=== PATIENT | female | born 1935 | race Caucasian/White ===

== ENCOUNTER 2017-07-31 18:10 | Emergency (ER) | payer MEDICARE, BC ==
[2017-07-31] MEDS ORDERED: Acetaminophen/oxyCODONE 325-5 MG Tab PO ONE ×2 (18:31→19:08)
--- NOTE | 2017-07-31 18:36 | EDM.PDOC ---
ED HPI GENERAL MEDICAL PROBLEM - General Chief Complaint: General Stated Complaint: PAIN UPPER LEGS Time Seen by Provider: 07/31/17 18:31 Source of Information: Reports: Patient History Limitations: Reports: No Limitations - History of Present Illness INITIAL COMMENTS - FREE TEXT/NARRATIVE: PT STATES SHE IS HAVING BILAT HIP PAIN AND LOW BACK PAIN. 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 SEEN BY PENELOPE HENRY 2 DAYS AGO AND UNDERWENT BILAT SACROILIAC STEROID INJECTIONS. STATES IT DID NOT SEEM TO HELP. NOT CURRENTLY TAKING ANY NARCOTICS. ALSO ADMITS TO URINARY URGENCY BUT NO DYSURIA. DENIES ABD PAIN, CP, SOB, OR RECENT TRAUMA Onset: Gradual Duration: Chronic Location: Reports: Back Quality: Reports: Ache Severity: Moderate Improves with: Reports: Other (STANDING) Worsens with: Reports: Movement (SITTING, LAYING FLAT) - Related Data Allergies Allergy/AdvReac Type Severity Reaction Status Date / Time ciprofloxacin [From Cipro] Allergy Unknown Anaphylactic Verified 07/31/17 18:21 Shock ciprofloxacin HCl Allergy Unknown Anaphylactic Verified 07/31/17 18:21 [From Cipro] Shock alendronate sodium Allergy Muscle Verified 07/31/17 18:21 [From Fosamax] Aches amoxicillin [From Augmentin] Allergy Stomach Verified 07/31/17 18:21 Upset clavulanic acid Allergy Stomach Verified 07/31/17 18:21 [From Augmentin] Upset lisinopril Allergy Nausea Verified 07/31/17 18:21 Home Meds: Home Meds Levothyroxine Sodium [Synthroid] 75 mcg PO DAILY 10/28/13 [History] metFORMIN [Glucophage] 1,000 mg PO BIDM 10/28/13 [History] Aspirin 325 mg PO QPM 02/27/17 [History] Calcium Carbonate [Calcium] 500 mg PO DAILY 02/27/17 [History] Cholecalciferol (Vitamin D3) [Vitamin D3] 1,000 unit PO DAILY 02/27/17 [History] Diltiazem HCl [Cardizem] 120 mg PO DAILY 02/27/17 [History] Past Medical History HEENT History: Reports: Impaired Vision Other HEENT History: wears glasses Cardiovascular History: Reports: Afib, Arrhythmia, Hypertension Other Gastrointestinal History: hx. of bloody stools Musculoskeletal History: Reports: Arthritis Neurological History: Reports: None Psychiatric History: Reports: None Endocrine/Metabolic History: Reports: Obesity/BMI 30+, Vitamin D Deficiency Dermatologic History: Reports: None - Past Surgical History Female Surgical History: Reports: Hysterectomy Social & Family History - Tobacco Use Smoking Status *Q: Never Smoker Second Hand Smoke Exposure: No - Caffeine Use Caffeine Use: Reports: Coffee - Recreational Drug Use Recreational Drug Use: No - Living Situation & Occupation Living situation: Reports: Occupation: Retired ED ROS GENERAL - Review of Systems Review Of Systems: ROS reveals no pertinent complaints other than HPI. Constitutional: Reports: No Symptoms HEENT: Reports: No Symptoms Respiratory: Reports: No Symptoms Cardiovascular: Reports: No Symptoms Endocrine: Reports: No Symptoms GI/Abdominal: Reports: No Symptoms : Reports: Urgency Musculoskeletal: Reports: Back Pain, Other (BILAT HIP PAIN) Skin: Reports: No Symptoms Neurological: Reports: No Symptoms Psychiatric: Reports: No Symptoms Hematologic/Lymphatic: Reports: No Symptoms Immunologic: Reports: No Symptoms ED EXAM, GENERAL - Physical Exam Exam: See Below Exam Limited By: No Limitations General Appearance: Alert, WD/WN, No Apparent Distress Throat/Mouth: Normal Inspection, Normal Oropharynx, No Airway Compromise Neck: Normal Inspection, Supple, Non-Tender, Full Range of Motion Respiratory/Chest: No Respiratory Distress, Lungs Clear, Normal Breath Sounds, No Accessory Muscle Use, Chest Non-Tender Cardiovascular: Regular Rate, Rhythm, No Murmur GI/Abdominal: Normal Bowel Sounds, Soft, Non-Tender Back Exam: Paraspinal Tenderness. No: CVA Tenderness (L), CVA Tenderness (R) Extremities: Normal Inspection, No Pedal Edema Neurological: Alert, Oriented, Normal Cognition Psychiatric: Normal Affect, Normal Mood Skin Exam: Warm, Dry, Intact, Normal Color, No Rash Course - Re-Assessments/Exams Free Text/Narrative Re-Assessment/Exam: 07/31/17 19:07 PT AFEBRILE, NONTOXIC APPEARING, VSS, PAIN SOMEWHAT RELIEVED. PERCOCET GIVEN HERE AND TO GO. KEFLEX STARTED HERE AND RX TO GO. Free Text/Narrative Re-Assessment/Exam: 07/31/17 19:17 DISCUSSED CASE WITH RADIOLOGY/ONCOLOGY DR TSANG. AGREED WITH ER COURSE AND WILL SEE PT ON FRIDAY IN [place] Departure - Departure Time of Disposition: 19:11 Disposition: Home, Self-Care 01 Condition: Good Clinical Impression: UTI, Urinary tract infectious disease Back pain Qualifiers: Back pain location: low back pain Chronicity: chronic Back pain laterality: bilateral Sciatica presence: without sciatica Qualified Code(s): M54.5 - Low back pain; G89.29 - Other chronic pain - Discharge Information Instructions: Back Pain, Adult, Urinary Tract Infection, Adult, Cen[id number] Referrals: Brenda Alexander MD [Primary Care Provider] - Additional Instructions: FOLLOW UP FOR RADIOLOGY APPOINTMENT SCHEDULED ON FRIDAY. RETURN TO ER SOONER IF SYMPTOMS CONTINUE - Assessment/Plan Assessment:: UTI / CHRONIC BACK PAIN
[2017-07-31 18:37] VITALS: BP 164/91
[2017-07-31] MEDS ORDERED: Ketorolac 60 MG/2 ML SDV IM ONE (18:59)
[2017-07-31] MEDS ORDERED: Cephalexin 250 MG Cap PO ONE (19:06)
== END 2017-07-31 19:30 | disposition home or self-care (01) ==
LOC: KA.ED 18:10
DX: N39.0 Urinary tract infection, site not specified (principal); M54.5 Low back pain; G89.29 Other chronic pain; I10 Essential (primary) hypertension; Z88.1 Allergy status to other antibiotic agents; Z88.8 Allergy status to other drugs, medicaments and biological substances; Z79.84 Long term (current) use of oral hypoglycemic drugs; Z79.82 Long term (current) use of aspirin; Z79.899 Other long term (current) drug therapy; Z85.048 Personal history of other malignant neoplasm of rectum, rectosigmoid junction, and anus; Z90.710 Acquired absence of both cervix and uterus
CPT/HCPCS: 81001; 87086; 96372; 99283; A9270; J1885

== ENCOUNTER 2017-08-10 18:38 | Emergency (ER) | payer MEDICARE, BC ==
[2017-08-10 18:46] VITALS: BP 146/71
[2017-08-10] MEDS ORDERED: Lidocaine 2% with EPINEPHrine 1:200,000 20 ML SDV ONE (19:15)
--- NOTE | 2017-08-10 19:43 | EDM.PDOC ---
ED HPI GENERAL MEDICAL PROBLEM - General Chief Complaint: Gastrointestinal Problem Stated Complaint: PAIN Time Seen by Provider: 08/10/17 19:08 Source of Information: Reports: Patient History Limitations: Reports: No Limitations - History of Present Illness INITIAL COMMENTS - FREE TEXT/NARRATIVE: Patient presents with pain and burning at her rectum that started today. She feels a large bump there also. 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 She called the GI center and was directed to come to ER. She has been having frequent, loose/watery stools since the surgery. Rectal Pain Score (Numeric/FACES): 9 - Related Data Allergies Allergy/AdvReac Type Severity Reaction Status Date / Time ciprofloxacin [From Cipro] Allergy Unknown Anaphylactic Verified 08/10/17 18:40 Shock ciprofloxacin HCl Allergy Unknown Anaphylactic Verified 08/10/17 18:40 [From Cipro] Shock alendronate sodium Allergy Muscle Verified 08/10/17 18:40 [From Fosamax] Aches amoxicillin [From Augmentin] Allergy Stomach Verified 08/10/17 18:40 Upset clavulanic acid Allergy Stomach Verified 08/10/17 18:40 [From Augmentin] Upset lisinopril Allergy Nausea Verified 08/10/17 18:40 Home Meds: Home Meds Levothyroxine Sodium [Synthroid] 75 mcg PO DAILY 10/28/13 [History] metFORMIN [Glucophage] 500 mg PO BIDM 10/28/13 [History] Aspirin 325 mg PO QPM 02/27/17 [History] Calcium Carbonate [Calcium] 500 mg PO DAILY 02/27/17 [History] Cholecalciferol (Vitamin D3) [Vitamin D3] 1,000 unit PO DAILY 02/27/17 [History] Diltiazem HCl [Cardizem] 240 mg PO DAILY 02/27/17 [History] Hydrocodone/Acetaminophen [Hydrocodon-Acetaminophen 5-325] 1 - 2 tab PO Q6HR PRN 08/01/17 [History] Past Medical History HEENT History: Reports: Impaired Vision Other HEENT History: wears glasses Cardiovascular History: Reports: Afib, Arrhythmia, Hypertension Other Gastrointestinal History: hx. 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: Musculoskeletal History: Reports: Arthritis Neurological History: Reports: None Psychiatric History: Reports: Anxiety Endocrine/Metabolic History: Reports: Vitamin D Deficiency Immunologic History: Reports: Immunosuppression Oncologic (Cancer) History: Reports: Colon Dermatologic History: Reports: None - Infectious Disease History Infectious Disease History: Reports: None - Past Surgical History HEENT Surgical History: Reports: None Cardiovascular Surgical History: Reports: None GI Surgical History: Reports: Colon, Colonoscopy Other GI Surgeries/Procedures: ileostomy Female Surgical History: Reports: Hysterectomy Endocrine Surgical History: Reports: None Musculoskeletal Surgical History: Reports: None Oncologic Surgical History: Reports: Other (See Below) Other Oncologic Surgeries/Procedures: colon resection. radiation Social & Family History - Tobacco Use Smoking Status *Q: Never Smoker Second Hand Smoke Exposure: No - Caffeine Use Caffeine Use: Reports: Coffee Caffeine Use Comment: 2 cups in am - Recreational Drug Use Recreational Drug Use: No - Living Situation & Occupation Living situation: Reports: Occupation: Retired ED ROS GENERAL - Review of Systems Review Of Systems: See Below Constitutional: Denies: Fever, Chills, Weakness HEENT: Reports: No Symptoms Respiratory: Denies: Shortness of Breath, Cough Cardiovascular: Denies: Chest Pain, Lightheadedness, Syncope GI/Abdominal: Reports: Diarrhea. Denies: Abdominal Pain, Nausea, Vomiting : Denies: Dysuria Musculoskeletal: Reports: No Symptoms Skin: Denies: Cyanosis, Jaundice, Mottled, Pallor, Diaphoresis Neurological: Denies: Confusion, Dizziness, Headache Psychiatric: Denies: Agitation, Anxiety, Confusion ED EXAM, GI/ABD - Physical Exam Exam: See Below Exam Limited By: No Limitations General Appearance: Alert, WD/WN, No Apparent Distress Eyes: Bilateral: Normal Appearance, EOMI Ears: Normal External Exam, Hearing Grossly Normal Nose: Normal Inspection, No Blood Throat/Mouth: Normal Lips, Normal Voice, No Airway Compromise Head: Atraumatic, Normocephalic Neck: Full Range of Motion Respiratory/Chest: No Respiratory Distress Cardiovascular: No Edema Rectal (Female) Exam: Hemorrhoids (a large external thrombosed hemorrhoid tender to palpation without evidence of cellulitis or abscess), Tenderness. No : Fecal Impaction, Perirectal Abscess, Rectal Fissure Neurological: Alert, Oriented, Normal Cognition, No Motor/Sensory Deficits Psychiatric: Normal Affect, Normal Mood Skin Exam: Warm, Dry, Intact, Normal Color, No Rash Course - Vital Signs Last Recorded V/S: Last Vital Signs Temp 97.5 F 08/10/17 18:43 Pulse 116 H 08/10/17 18:43 Resp 22 H 08/10/17 18:43 BP 146/71 H 08/10/17 18:43 Pulse Ox 99 08/10/17 18:43 - Orders/Labs/Meds Meds: Medications Discontinued Medications Generic Name Dose Route Start Last Admin Trade Name Annika PRN Reason Stop Dose Admin Lidocaine/Epinephrine Confirm 08/10/17 19:15 Xylocaine-Mpf 2%-Epi 1:200,000 Administered 08/10/17 19:16 Dose 20 ml .ROUTE .STK-MED ONE - Re-Assessments/Exams Free Text/Narrative Re-Assessment/Exam: 08/10/17 19:50 Discussed findings and expectations. Provided pt info on hemorrhoid care. Instructed patient she can sit in a warm bath to help clean and soothe this. Recheck in 1-2 days. Patient discharged in stable condition. Departure - Departure Time of Disposition: 19:37 Disposition: Home, Self-Care 01 Condition: Good Clinical Impression: Thrombosed external hemorrhoid - Discharge Information Referrals: Brenda Alexander MD [Primary Care Provider] - Additional Instructions: 1. Watch for fever or signs of infection. 2. You can use Ibuprofen vs Tylenol as needed for treatment of pain. 3. Follow up with Dr. Gutierrez in 1-2 days for recheck to make sure it isn't looking infected and to see if anything further needs to be done with the hemorrhoid. Incision and Drainage - Incision and Drainage Site: Rectal external hemorrhoid, 1.5x3cm, thrombosed Exam: hard Local anesthesia: Lidocaine: lidocaine 1 % (with epi) Local anesthesia volume: other (3 cc) Area incised with: other (11-blade) Drainage: Bloody, Small Amount Wound culture: No Probed to Break Up Loculations: Yes Packed With: None Sterile Dressing: None Complications: No
== END 2017-08-10 19:50 | disposition home or self-care (01) ==
LOC: KA.ED 18:38
DX: K64.5 Perianal venous thrombosis (principal); I48.91 Unspecified atrial fibrillation; I10 Essential (primary) hypertension; Z90.710 Acquired absence of both cervix and uterus; Z88.1 Allergy status to other antibiotic agents; Z88.8 Allergy status to other drugs, medicaments and biological substances; Z79.82 Long term (current) use of aspirin; Z79.899 Other long term (current) drug therapy
CPT/HCPCS: 99282; 99283

== ENCOUNTER 2017-08-16 13:56 | Emergency (ER) | payer MEDICARE, BC ==
[2017-08-16 14:19] VITALS: BP 147/77
[2017-08-16] MEDS ORDERED: Lidocaine 2% with EPINEPHrine 1:200,000 20 ML SDV ONE (14:43)
--- NOTE | 2017-08-16 15:35 | EDM.PDOC ---
ED HPI GENERAL MEDICAL PROBLEM - General Chief Complaint: General Stated Complaint: hemorrhoid Time Seen by Provider: 08/16/17 14:30 Source of Information: Reports: Patient History Limitations: Reports: No Limitations - History of Present Illness INITIAL COMMENTS - FREE TEXT/NARRATIVE: 82 year-old female presents to emergency room complaining of rectal pain. Pain began this morning when she woke up. Reports the pain is severe and constant. She denies any current rectal bleeding. She denies significant abdominal pain at this time. She denies significant constipation. She has been having regular bowel movements. She was seen on 08/10/17 for similar episode of hemorrhoid pain. She had incision of her hemorrhoid and had good relief up until today. The hemorrhoid was not excised but she reports that is very tender. She denies fever, chills, nausea or vomiting, abdominal pain. She had a recent surgery reversal of her ileostomy and reanastomosis of her colon on . She was diagnosed with colon cancer in April and had resection. She knows little bit of a drainage from where her ileostomy was reversed but denies any redness or purulence and again no significant pain in the abdomen area. She seeks further treatment of her rectal and hemorrhoid pain. Onset: Today Onset Date: 08/16/17 Onset Time: 07:00 Duration: Hour(s):, Constant Quality: Reports: Ache, Throbbing Severity: Severe Improves with: Reports: None Worsens with: Reports: Other (sitting) Associated Symptoms: Reports: No Other Symptoms. Denies: Fever/Chills, Nausea/ Vomiting Rectal Pain Score (Numeric/FACES): 10 - Related Data Allergies Allergy/AdvReac Type Severity Reaction Status Date / Time ciprofloxacin [From Cipro] Allergy Unknown Anaphylactic Verified 08/16/17 14:04 Shock ciprofloxacin HCl Allergy Unknown Anaphylactic Verified 08/16/17 14:04 [From Cipro] Shock alendronate sodium Allergy Muscle Verified 08/16/17 14:04 [From Fosamax] Aches amoxicillin [From Augmentin] Allergy Stomach Verified 08/16/17 14:04 Upset clavulanic acid Allergy Stomach Verified 08/16/17 14:04 [From Augmentin] Upset lisinopril Allergy Nausea Verified 08/16/17 14:04 Home Meds: Home Meds Levothyroxine Sodium [Synthroid] 75 mcg PO DAILY 10/28/13 [History] metFORMIN [Glucophage] 500 mg PO BIDM 10/28/13 [History] Aspirin 325 mg PO QPM 02/27/17 [History] Calcium Carbonate [Calcium] 500 mg PO DAILY 02/27/17 [History] Cholecalciferol (Vitamin D3) [Vitamin D3] 1,000 unit PO DAILY 02/27/17 [History] Diltiazem HCl [Cardizem] 240 mg PO DAILY 02/27/17 [History] Hydrocodone/Acetaminophen [Hydrocodon-Acetaminophen 5-325] 1 - 2 tab PO Q6HR PRN 08/01/17 [History] Hydrocortisone [Proctosol-HC] 1 applic TOP QID PRN 08/16/17 [History] Past Medical History HEENT History: Reports: Impaired Vision Other HEENT History: wears glasses Cardiovascular History: Reports: Afib, Arrhythmia, Hypertension Other Gastrointestinal History: hx. 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: Musculoskeletal History: Reports: Arthritis Neurological History: Reports: None Psychiatric History: Reports: Anxiety Endocrine/Metabolic History: Reports: Hypothyroidism, Vitamin D Deficiency Immunologic History: Reports: Immunosuppression Oncologic (Cancer) History: Reports: Colon Dermatologic History: Reports: None - Infectious Disease History Infectious Disease History: Reports: Chicken Pox, Measles, Mumps, Other (See Below) Other Infectious Disease History: Whopping cough - Past Surgical History HEENT Surgical History: Reports: None Cardiovascular Surgical History: Reports: None GI Surgical History: Reports: Colon, Colonoscopy, Other (See Below) Other GI Surgeries/Procedures: ileostomy takedown 08/04/2017 Female Surgical History: Reports: Hysterectomy Endocrine Surgical History: Reports: None Musculoskeletal Surgical History: Reports: None Oncologic Surgical History: Reports: Other (See Below) Other Oncologic Surgeries/Procedures: colon resection. radiation Social & Family History - Family History Family Medical History: Noncontributory - Tobacco Use Smoking Status *Q: Never Smoker Second Hand Smoke Exposure: No - Caffeine Use Caffeine Use: Reports: Coffee Caffeine Use Comment: 2 cups in am - Recreational Drug Use Recreational Drug Use: No - Living Situation & Occupation Living situation: Reports: Occupation: Retired ED ROS GENERAL - Review of Systems Review Of Systems: ROS reveals no pertinent complaints other than HPI. ED EXAM, GENERAL - Physical Exam Exam: See Below Exam Limited By: No Limitations General Appearance: Alert, WD/WN, No Apparent Distress Throat/Mouth: Normal Voice Head: Atraumatic, Normocephalic Respiratory/Chest: No Respiratory Distress Rectal (Female) Exam: Hemorrhoids (a large external hemorrhoid is noticed on the right side of the rectum is percolation and tender to palpation. No evidence of rectal bleeding or vaginal bleeding is identified.) Back Exam: Normal Inspection Extremities: Normal Inspection Neurological: Alert, Oriented Psychiatric: Normal Affect, Normal Mood Skin Exam: Warm, Dry, Intact, Normal Color, No Rash ED I&D PROCEDURES - I&D Site: gross history, hemorrhoid Skin prep: Providone-Iodine (Betadine) Local anesthesia - Lidocaine (Xylocaine): 2% with EPI Local Anesthetic Volume: Other (20cc) Area Incised With: 15 Blade Drainage: Bloody Probed to Break Up Loculations: Yes Packed With: Other (Surgicel) Sterile Dressinx4(s) Complications: No Progress/Comments: Rectum and area surrounding the hemorrhoid was cleaned and prepped with a white and then prepped with Betadine. 27-gauge needle was used to infiltrate the surrounding skin underneath the clot with 2% lidocaine with epinephrine. After adequate anesthetic was administered. On Nursoy helped gently spread the buttocks and the area was cleaned and sterile drapes were placed over the rectal area where the hemorrhoid external thrombosed hemorrhoid was visualized. A 15 blade was used making an elliptical excision to excise the thrombosed hemorrhoid and skin. Hemorrhoid was removed with pickups and a 15 blade. 4 x 4 gauze was packed use for bleeding. Silver nitrate sticks were used for hemostasis. A small piece of Surgicel and 4 x 4's was packed into the excised hemorrhoidal tissue. And paper tape was used to secure the dressing. Patient was placed in some depends undergarments in case of bleeding. We'll have her begin sitz baths and remove the dressing in 6 hours. Course - Vital Signs Last Recorded V/S: Last Vital Signs Temp 99 F 08/16/17 14:15 Pulse 86 08/16/17 14:15 Resp 20 08/16/17 14:15 BP 147/77 H 08/16/17 14:15 Pulse Ox 98 08/16/17 14:15 - Orders/Labs/Meds Meds: Medications Discontinued Medications Generic Name Dose Route Start Last Admin Trade Name Annika PRN Reason Stop Dose Admin Lidocaine/Epinephrine Confirm 08/16/17 14:43 08/16/17 15:48 Xylocaine-Mpf 2%-Epi 1:200,000 Administered 08/16/17 14:44 20 ml Dose Administration 20 ml .ROUTE .STK-MED ONE - Re-Assessments/Exams Free Text/Narrative Re-Assessment/Exam: 08/16/17 16:00 Patient reports adequate anesthetic she has no pain in the area her rectal or thrombosed hemorrhoid after delivery of anesthetic to infiltrate the skin and surrounding area with 2% lidocaine with epinephrine. Departure - Departure Time of Disposition: 16:30 Disposition: Home, Self-Care 01 Condition: Good Clinical Impression: Thrombosed external hemorrhoid - Discharge Information Referrals: Brenda Alexander MD [Primary Care Provider] - Forms: ED Department Discharge Additional Instructions: 1. Remove the dressing at time of first sitz bath in about 6 hours 2. Ibuprofen 800 mg 3 times a day with food for analgesic 3. Lidocaine 4% ointment to the anus: Topical anesthetic for pain relief. 4. Oxycodone patient has prescription for recent surgery at home may take if pain is severe as directed. 5. Colace to take one twice a day for constipation and soft stools. 6. Follow-up with Dr. Brenda Ludwig on Friday for a wound check. - Assessment/Plan Assessment:: Thrombosed external hemorrhoid. Plan: 1. Remove the dressing at time of first sitz bath in about 6 hours 2. Ibuprofen 800 mg 3 times a day with food for analgesic 3. Lidocaine 4% ointment to the anus: Topical anesthetic for pain relief. 4. Oxycodone patient has prescription for recent surgery at home may take if pain is severe as directed. 5. Colace to take one twice a day for constipation and soft stools. 6. Follow-up with Dr. Brenda Ludwig on Friday for a wound check.
[2017-08-16] MEDS ORDERED: Ibuprofen 400 MG Tab ONE (15:50)
[2017-08-16] MEDS ORDERED: Lidocaine 4% Top Soln 50 ML Bottle ONE (16:06)
[2017-08-16] MEDS ORDERED: Lidocaine 2% with EPINEPHrine 1:200,000 20 ML SDV INJECT ONE (16:06)
[2017-08-16] MEDS ORDERED: Lidocaine 4% Top Soln 50 ML Bottle TOP ONE (17:00)
== END 2017-08-16 16:20 | disposition home or self-care (01) ==
LOC: KA.ED 13:56
DX: K64.5 Perianal venous thrombosis (principal); I10 Essential (primary) hypertension; Z88.1 Allergy status to other antibiotic agents; Z88.8 Allergy status to other drugs, medicaments and biological substances; Z79.84 Long term (current) use of oral hypoglycemic drugs; Z79.82 Long term (current) use of aspirin; Z79.899 Other long term (current) drug therapy
CPT/HCPCS: 46083; 99282; 99283; A9270

== ENCOUNTER 2018-03-06 22:53 | Emergency (ER) | payer MEDICARE, BC ==
[2018-03-06] MEDS ORDERED: Sodium Chloride 0.9% 5 ML Syringe FLUSH PRN (23:03)
[2018-03-06] MEDS ORDERED: Metoprolol Tartrate 5 MG/5 ML SDV ONE (23:08)
[2018-03-06] MEDS ORDERED: Aspirin 81 MG Tab.Chew ONE (23:09)
[2018-03-06] MEDS ORDERED: Nitroglycerin 2% Oint 1 GM UD Packet ONE (23:19)
[2018-03-06] MEDS ORDERED: Nitroglycerin 2% Oint 1 GM UD Packet TOP ONE (23:22)
[2018-03-06] MEDS: Diltiazem 25 MG/5 ML SDV IVPUSH ONE ×3 (23:24→23:40)
[2018-03-06] MEDS: Sodium Chloride 0.9% 1,000 ML ONE ×2 (23:34→23:36)
--- NOTE | 2018-03-06 23:42 | EDM.PDOC ---
ED HPI GENERAL MEDICAL PROBLEM - General Chief Complaint: Chest Pain Stated Complaint: ILL Time Seen by Provider: 03/06/18 23:20 Source of Information: Reports: Patient History Limitations: Reports: No Limitations - History of Present Illness INITIAL COMMENTS - FREE TEXT/NARRATIVE: Patient is an 82-year-old female who presents to the emergency department this evening with a complaint of heart palpitations. Patient states approximately 2000 this evening she felt her heart racing and laid down. She thought that it was improving, but about 9 o'clock it became worse. At that time she took 180 mg of Cardizem which is what she takes on a regular daily basis. She states that did not have any effect and so she decided to present to the emergency department. Patient states that she does feel short of breath but denies chest pain, abdominal pain, headache, dizziness, nausea, vomiting, diarrhea, or out of country travel. Patient was given 5 mg metoprolol IV. An EKG was faxed up to [facility]. Case discussed with engineering faculty, Dr. Howard who recommended to start patient on 20 mg Cardizem IV until labs with troponins come back. 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 Medication(s) (180 mg of Cardizem at 2100 this evening) - Related Data Allergies Allergy/AdvReac Type Severity Reaction Status Date / Time ciprofloxacin [From Cipro] Allergy Unknown Anaphylactic Verified 08/16/17 14:04 Shock ciprofloxacin HCl Allergy Unknown Anaphylactic Verified 08/16/17 14:04 [From Cipro] Shock alendronate sodium Allergy Muscle Verified 08/16/17 14:04 [From Fosamax] Aches amoxicillin [From Augmentin] Allergy Stomach Verified 08/16/17 14:04 Upset clavulanic acid Allergy Stomach Verified 08/16/17 14:04 [From Augmentin] Upset lisinopril Allergy Nausea Verified 08/16/17 14:04 pregabalin [From Lyrica] Allergy Other Verified 03/06/18 23:06 Home Meds: Home Meds Levothyroxine Sodium [Synthroid] 75 mcg PO DAILY 10/28/13 [History] metFORMIN [Glucophage] 500 mg PO BIDM 10/28/13 [History] Aspirin 325 mg PO QPM 02/27/17 [History] Diltiazem HCl [Cardizem] 240 mg PO DAILY 02/27/17 [History] oxyCODONE HCl/Acetaminophen [Endocet 5-325 Tablet] 1 - 2 tab PO Q6HR PRN [History] Past Medical History HEENT History: Reports: Impaired Vision Other HEENT History: wears glasses Cardiovascular History: Reports: Afib, Arrhythmia, Hypertension Other Gastrointestinal History: hx. 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: Musculoskeletal History: Reports: Arthritis Neurological History: Reports: None Psychiatric History: Reports: Anxiety Endocrine/Metabolic History: Reports: Hypothyroidism, Vitamin D Deficiency Immunologic History: Reports: Immunosuppression Oncologic (Cancer) History: Reports: Colon Dermatologic History: Reports: None - Infectious Disease History Infectious Disease History: Reports: Chicken Pox, Measles, Mumps, Other (See Below) Other Infectious Disease History: Whopping cough - Past Surgical History HEENT Surgical History: Reports: None Cardiovascular Surgical History: Reports: None GI Surgical History: Reports: Colon, Colonoscopy, Other (See Below) Other GI Surgeries/Procedures: ileostomy takedown 08/04/2017 Female Surgical History: Reports: Hysterectomy Endocrine Surgical History: Reports: None Musculoskeletal Surgical History: Reports: None Oncologic Surgical History: Reports: Other (See Below) Other Oncologic Surgeries/Procedures: colon resection. radiation Social & Family History - Family History Family Medical History: Noncontributory - Tobacco Use Smoking Status *Q: Unknown Ever Smoked Second Hand Smoke Exposure: No - Caffeine Use Caffeine Use: Reports: Coffee Caffeine Use Comment: 2 cups in am - Recreational Drug Use Recreational Drug Use: No - Living Situation & Occupation Living situation: Reports: Occupation: Retired ED ROS GENERAL - Review of Systems Review Of Systems: ROS reveals no pertinent complaints other than HPI. Constitutional: Reports: No Symptoms HEENT: Reports: No Symptoms Respiratory: Reports: No Symptoms Cardiovascular: Reports: Palpitations Endocrine: Reports: No Symptoms GI/Abdominal: Reports: No Symptoms : Reports: No Symptoms Musculoskeletal: Reports: No Symptoms Skin: Reports: No Symptoms Neurological: Reports: No Symptoms Psychiatric: Reports: No Symptoms Hematologic/Lymphatic: Reports: No Symptoms Immunologic: Reports: No Symptoms ED EXAM, GENERAL - Physical Exam Exam: See Below Exam Limited By: No Limitations General Appearance: Alert, WD/WN, Mild Distress Eye Exam: Bilateral Eye: Normal Inspection Nose: Normal Inspection, No Blood Throat/Mouth: Normal Inspection, Normal Oropharynx, No Airway Compromise Head: Atraumatic, Normocephalic Neck: Normal Inspection Respiratory/Chest: No Respiratory Distress, Lungs Clear, Normal Breath Sounds, No Accessory Muscle Use, Chest Non-Tender Cardiovascular: Tachycardia, Irregularly Irregular GI/Abdominal: Normal Bowel Sounds, Soft, Non-Tender Back Exam: Normal Inspection. No: CVA Tenderness (L), CVA Tenderness (R) Extremities: Normal Inspection, No Pedal Edema Neurological: Alert, Oriented, Normal Cognition Psychiatric: Normal Affect, Normal Mood Skin Exam: Warm, Dry, Intact, Normal Color, No Rash EKG INTERPRETATION EKG Date: 03/06/18 Time: 23:05 Rhythm: A-Fib Rate (Beats/Min): 195 Comparison: NA - No Prior EKG Course - Vital Signs Last Recorded V/S: Last Vital Signs Temp 96.9 F 03/06/18 23:14 Pulse 180 H 03/06/18 23:14 Resp 30 H 03/06/18 23:14 BP 153/83 H 03/06/18 23:14 Pulse Ox 95 03/06/18 23:14 - Orders/Labs/Meds Orders: Active Orders 24 hr Category Date Time Status EKG Documentation Completion [RC] ASDIRECTED Care 03/06/18 23:03 Active Peripheral IV Care [RC] . DIRECTED Care 03/06/18 23:03 Active Chest 1V Frontal [CR] Stat Exams 03/06/18 23:20 Ordered Chest 2V [CR] Stat Exams 03/06/18 23:03 Stop Req CBC W/O DIFF,HEMOGRAM [HEME] Stat Lab 03/06/18 23:03 Ordered COMPREHENSIVE METABOLIC PN,CMP [CHEM] Stat Lab 03/06/18 23:03 Ordered TROPONIN I [CHEM] Stat Lab 03/06/18 23:03 Ordered Sodium Chloride 0.9% [Syrex Flush] Med 03/06/18 23:03 Active 5 ml FLUSH Q8HR PRN Peripheral IV Insertion Adult [OM.PC] Routine Oth 03/06/18 23:03 Ordered EKG 12 Lead [EK] Routine Ther 03/06/18 23:03 Ordered Medication Orders Sodium Chloride (Syrex Flush) 5 ml FLUSH Q8HR PRN PRN Reason: Keep Vein Open Meds: Medications Generic Name Dose Route Start Last Admin Trade Name Freq PRN Reason Stop Dose Admin Sodium Chloride 5 ml 03/06/18 23:03 Syrex Flush FLUSH Q8HR PRN Keep Vein Open Discontinued Medications Generic Name Dose Route Start Last Admin Trade Name Freq PRN Reason Stop Dose Admin Aspirin Confirm 03/06/18 23:09 03/06/18 23:13 Aspirin Administered 03/06/18 23:10 324 mg Dose Administration 324 mg .ROUTE .STK-MED ONE Sodium Chloride Confirm 03/06/18 23:11 Normal Saline Administered 03/06/18 23:12 Dose 1,000 mls @ as directed .ROUTE .STK-MED ONE Metoprolol Tartrate Confirm 03/06/18 23:08 03/06/18 23:12 Lopressor Administered 03/06/18 23:09 5 mg Dose Administration 5 mg .ROUTE .STK-MED ONE - Re-Assessments/Exams Free Text/Narrative Re-Assessment/Exam: 03/07/18 00:16 Patient afebrile, nontoxic appearing, vital signs stable, heart rate 120s to 130s. Discussed case with Dr. Howard, cardiology and Dr. Wheeler, hospitalist from [facility]. Patient will be transferred via ground EMS and They will accept transfer of care. Departure - Departure Time of Disposition: 00:19 Disposition: DC/Tfer to Acute Hospital 02 Reason for Transfer *Q: Primary PCI Indicated Condition: Fair Clinical Impression: Rapid atrial fibrillation, afib Referrals: Brenda Alexander MD [Primary Care Provider] - - My Orders Last 24 Hours: My Active Orders 03/06/18 23:03 EKG Documentation Completion [RC] ASDIRECTED Peripheral IV Care [RC] . DIRECTED Chest 2V [CR] Stat CBC W/O DIFF,HEMOGRAM [HEME] Stat COMPREHENSIVE METABOLIC PN,CMP [CHEM] Stat TROPONIN I [CHEM] Stat Sodium Chloride 0.9% [Syrex Flush] 5 ml FLUSH Q8HR PRN Peripheral IV Insertion Adult [OM.PC] Routine EKG 12 Lead [EK] Routine 03/06/18 23:20 Chest 1V Frontal [CR] Stat - Assessment/Plan Last 24 Hours: My Active Orders 03/06/18 23:03 EKG Documentation Completion [RC] ASDIRECTED Peripheral IV Care [RC] . DIRECTED Chest 2V [CR] Stat CBC W/O DIFF,HEMOGRAM [HEME] Stat COMPREHENSIVE METABOLIC PN,CMP [CHEM] Stat TROPONIN I [CHEM] Stat Sodium Chloride 0.9% [Syrex Flush] 5 ml FLUSH Q8HR PRN Peripheral IV Insertion Adult [OM.PC] Routine EKG 12 Lead [EK] Routine 03/06/18 23:20 Chest 1V Frontal [CR] Stat
[2018-03-06 23:52] LABS: CHLORIDE,CL 104 mmol/L (98-115); SODIUM,NA 144 mmol/L (136-145)
[2018-03-07] MEDS ORDERED: Aspirin 81 MG Tab.Chew CHEW ONE
[2018-03-07] MEDS ORDERED: Metoprolol Tartrate 5 MG/5 ML SDV IV ONE
[2018-03-07 00:05] VITALS: BP 128/77
[2018-03-07] MEDS ORDERED: Sodium Chloride 0.9% 1,000 ML ONE (00:16)
[2018-03-07] MEDS ORDERED: Sodium Chloride 0.9% 1,000 ML IV SCH (00:30)
== END 2018-03-07 00:45 ==
LOC: KA.ED 22:53
DX: I48.91 Unspecified atrial fibrillation (principal); I10 Essential (primary) hypertension; E03.9 Hypothyroidism, unspecified; Z88.1 Allergy status to other antibiotic agents; Z88.8 Allergy status to other drugs, medicaments and biological substances; Z79.899 Other long term (current) drug therapy; Z79.82 Long term (current) use of aspirin; Z79.84 Long term (current) use of oral hypoglycemic drugs
CPT/HCPCS: 71045; 80053; 84484; 85027; 93005; 96361; 96374; 96375; 99285; A9270; J3490; J7030; 99284

== ENCOUNTER 2021-06-05 07:49 | Day surgery (SDC) | payer MEDICARE, BC ==
[~2021-06-05 07:49] MED LIST: Sodium Chloride 0.9% 1,000 ML IV SCH; Sodium Chloride 0.9% 10 ML Syringe FLUSH PRN
[2021-06-05] MEDS ORDERED: Ondansetron 4 MG/2 ML SDV IV ONE (07:50)
[2021-06-05] MEDS ORDERED: Lactated Ringers 1,000 ML IV SCH (08:00)
[2021-06-05] MEDS ORDERED: Sodium Chloride 0.9% 1,000 ML IV SCH (08:00)
[2021-06-05] MEDS ORDERED: Sodium Chloride 0.9% 10 ML Syringe FLUSH PRN (08:00)
[2021-06-05] MEDS ORDERED: Midazolam 1 MG/ML 2 ML SDV ONE (08:55)
[2021-06-05] MEDS ORDERED: Propofol 200 MG/20 ML SDV ONE (08:55)
[2021-06-05] MEDS ORDERED: Glycopyrrolate 0.2 MG/ML SDV ONE (08:56)
[2021-06-05] MEDS ORDERED: Lidocaine 2% 5 ML SDV ONE (08:56)
--- NOTE | 2021-06-05 09:09 | PCM.PN ---
- General Info Date of Service: 06/05/21 - Review of Systems Systems Review Comment:: 86-year-old female referred for EGD. She has a history of dysphagia. Her recent history and physical is reviewed and no significant changes are noted. I have discussed the proposed EGD with the patient. Expectations and risks reviewed. These included but were not limited to esophageal injury and treatment options if this occurs. Her questions were answered. She agrees to proceed. - Patient Data Vitals - Most Recent: Last Vital Signs Temp 96.4 F L 06/05/21 08:12 Pulse 75 06/05/21 08:12 Resp 20 06/05/21 08:12 BP 160/71 H 06/05/21 08:21 Pulse Ox 98 06/05/21 08:12 Weight - Most Recent: 74.843 kg Lab Results Last 24 Hours: Laboratory Results - last 24 hr 06/05/21 Range/Units 08:05 POC Glucose 118 (70-140) mg/dL Med Orders - Current: Current Medications Sodium Chloride (Normal Saline) 1,000 mls @ 50 mls/hr IV ASDIRECTED [facility] Last Admin: 06/05/21 08:15 Dose: 50 mls/hr Documented by: Sodium Chloride (Sodium Chloride 0.9% 10 Ml Syringe) 10 ml FLUSH Q8HR PRN PRN Reason: keep vein open Last Admin: 06/05/21 08:17 Dose: 10 ml Documented by: Discontinued Medications Glycopyrrolate (Glycopyrrolate 0.2 Mg/Ml Sdv) Confirm Administered Dose 0.2 mg .ROUTE .STK-MED ONE Stop: 06/05/21 08:57 Sodium Chloride (Normal Saline) 1,000 mls @ 50 mls/hr IV ASDIRECTED JOSAFAT Lactated Ringer's (Ringers, Lactated) 1,000 mls @ 50 mls/hr IV ASDIRECTED [facility] Lidocaine (Lidocaine 2% 5 Ml Sdv) Confirm Administered Dose 5 ml .ROUTE .STK-MED ONE Stop: 06/05/21 08:57 Midazolam HCl (Midazolam 1 Mg/Ml 2 Ml Sdv) Confirm Administered Dose 2 mg .ROUTE .STK-MED ONE Stop: 06/05/21 08:56 Propofol (Propofol 200 Mg/20 Ml Sdv) Confirm Administered Dose 200 mg .ROUTE .STK-MED ONE Stop: 06/05/21 08:56 Sodium Chloride (Sodium Chloride 0.9% 10 Ml Syringe) 10 ml FLUSH Q8HR PRN PRN Reason: keep vein open - Patient Data Lab Results Last 24 hrs: Laboratory Results - last 24 hr 06/05/21 Range/Units 08:05 POC Glucose 118 (70-140) mg/dL Sepsis Event Note - Focused Exam Vital Signs: Vital Signs Temp Pulse Resp BP Pulse Ox 06/05/21 08:21 160/71 H 06/05/21 08:12 96.4 F L 75 20 176/71 H 98 - Problem List Review Problem List Initiated/Reviewed/Updated: Yes - My Orders Last 24 Hours: My Active Orders 06/04/21 10:51 Resuscitation Status Routine 06/05/21 08:00 Blood Glucose Check, Bedside [RC] UPON Patient to Empty Bladder [RC] ASDIRECTED Nothing Per Oral Diet [DIET] Sodium Chloride 0.9% [Normal Saline] 1,000 ml IV ASDIRECTED Sodium Chloride 0.9% [Saline Flush] 10 ml FLUSH Q8HR PRN Peripheral IV Insertion Adult [OM.PC] Routine 06/05/21 09:00 Verify Patient Consent Obtain [RC] ASDIRECTED - Assessment Assessment:: Dysphagia - Plan Plan:: EGD
--- NOTE | 2021-06-05 09:32 | PCM.OPNOTE ---
- General Post-Op/Procedure Note Date of Surgery/Procedure: 06/05/21 Operative Procedure(s): EGD with biopsy Findings: Mild generalized thickening of esophageal wall but structures otherwise appear normal Pre Op Diagnosis: Dysphagia Post-Op Diagnosis: Same Anesthesia Technique: MAC Primary Surgeon: Karl Merino Pathology: Biopsies of gastric antrum and esophagus EBL in mLs: 2 Complications: None Condition: Good
[2021-06-05 10:52] VITALS: BP 150/82; PULSE 84
--- NOTE | 2021-06-05 13:58 | OR ---
DATE OF SURGERY: 06/05/2021 SURGEON: Karl Merino MD PREOPERATIVE DIAGNOSIS: Dysphagia. POSTOPERATIVE DIAGNOSIS: Dysphagia. OPERATION PERFORMED: Esophagogastroduodenoscopy with biopsy. INDICATIONS FOR SURGERY: This 86-year-old female who has had approximately a one-year history of dysphagia with heavy foods getting stuck in her esophagus. She was referred for upper endoscopy. FINDINGS: No mass or isolated narrowing of the esophagus is seen. The wall of the esophagus generally appeared to be mildly thickened. The GE junction was distinct and without signs of inflammation. The lining of the stomach appeared normal without ulceration or visible signs of inflammation, and the visualized duodenum also appeared normal. DESCRIPTION OF PROCEDURE: The patient was taken to the operating room. She was given intravenous sedation, and with her in the left lateral decubitus position, the Olympus gastroscope was advanced through a mouth guard into the oral cavity. Under direct visualization, the scope was then advanced through the oropharynx into the esophagus where it was then advanced without difficulty through the esophagus into the stomach and then on into the duodenum where examination to the third portion was performed. After examining the duodenum, the scope was withdrawn back into the stomach where full examination including retroflexed examination of the fundus was performed. Random biopsies of the antrum were taken to rule out H pylori. The GE junction and esophagus were then carefully reexamined. Without an isolated stricture, no dilation was performed, but random biopsies throughout the esophagus were taken. With no sign of any complication, the scope was removed, and the patient was taken from the operating room in satisfactory condition. ESTIMATED BLOOD LOSS: 2 mL. COMPLICATIONS: None. PROGNOSIS: Good. /[id number]/MODL
== END 2021-06-05 10:55 | disposition home or self-care (01) ==
LOC: KA.SDS 07:49
PROVIDERS: ATTEND Surgery
DX: K31.89 Other diseases of stomach and duodenum (principal); K22.8 Other specified diseases of esophagus; R13.10 Dysphagia, unspecified; E03.9 Hypothyroidism, unspecified; M47.26 Other spondylosis with radiculopathy, lumbar region; R19.4 Change in bowel habit; Z88.1 Allergy status to other antibiotic agents; Z88.8 Allergy status to other drugs, medicaments and biological substances; Z79.82 Long term (current) use of aspirin; Z79.890 Hormone replacement therapy; Z79.899 Other long term (current) drug therapy
CPT/HCPCS: 00731; 82947; 88305; J2250; J2405; J2704; J3490; J7030

== ENCOUNTER 2022-10-08 08:40 | Day surgery (SDC) | payer MEDICARE, BC ==
[2022-10-08] MEDS ORDERED: Sodium Chloride 0.9% 10 ML Syringe FLUSH PRN (09:00)
[2022-10-08] MEDS ORDERED: fentaNYL 100 MCG/2 ML SDV ONE (09:07)
[2022-10-08 09:14] VITALS: BP 160/100; PULSE 80
[2022-10-08] MEDS: Sodium Chloride 0.9% 1,000 ML IV SCH (09:30)
[2022-10-08] MEDS ORDERED: Propofol 200 MG/20 ML SDV ONE (10:04)
== END 2022-10-08 11:41 | disposition home or self-care (01) ==
LOC: KA.SDS 08:40
PROVIDERS: ATTEND Surgery
DX: R19.4 Change in bowel habit (principal); R10.30 Lower abdominal pain, unspecified; E11.9 Type 2 diabetes mellitus without complications; N18.9 Chronic kidney disease, unspecified; E03.9 Hypothyroidism, unspecified; Z79.890 Hormone replacement therapy; Z85.048 Personal history of other malignant neoplasm of rectum, rectosigmoid junction, and anus; Z79.2 Long term (current) use of antibiotics; Z79.84 Long term (current) use of oral hypoglycemic drugs
CPT/HCPCS: 00812; 82947; J2704; J3010; J7030

== ENCOUNTER 2022-11-02 10:51 | Emergency (ER) | payer MEDICARE, BC ==
[2022-11-02 11:00] VITALS: BP 160/68; PULSE 79
== END 2022-11-02 12:40 | disposition home or self-care (01) ==
LOC: KA.ED 10:51
DX: M54.42 Lumbago with sciatica, left side (principal); E11.9 Type 2 diabetes mellitus without complications; E03.9 Hypothyroidism, unspecified; Z88.1 Allergy status to other antibiotic agents; Z88.0 Allergy status to penicillin; Z91.048 Other nonmedicinal substance allergy status; Z88.8 Allergy status to other drugs, medicaments and biological substances; Z79.82 Long term (current) use of aspirin
CPT/HCPCS: 72100; 99283

== ENCOUNTER 2023-07-02 13:51 | Inpatient (IN) | payer MEDICARE, BC ==
[2023-07-02] MEDS ORDERED: Sodium Chloride 0.9% 10 ML Syringe FLUSH PRN (13:56)
[2023-07-02] MEDS ORDERED: Ondansetron 4 MG/2 ML SDV IVPUSH ONE ×2 (14:02→18:45)
[2023-07-02] MEDS ORDERED: Naloxone 0.4 MG/ML SDV IVPUSH PRN ×2 (14:03→20:21)
[2023-07-02] MEDS ORDERED: HYDROmorphone 1 MG/ML Syringe IVPUSH ONE ×2 (14:03→17:08)
[2023-07-02 14:04] LABS: BASOPHILS ABSOLUTE AUTO 0.02 10^3/uL (0.00-0.10); BASOPHILS PERCENT AUTO 0.2 % (0.0-1.0); EOSINOPHILS ABSOLUTE AUTO 0.02 10^3/uL (0.10-0.30); EOSINOPHILS PERCENT AUTO 0.2 % (1.0-3.0); HEMATOCRIT 42.2 % (37.0-47.0); IMMATURE GRAN ABSOLUTE AUTO 0.02 10^3/uL (0.00-0.50); IMMATURE GRAN PERCENT AUTO 0.2 % (0.0-5.0); LYMPHOCYTES ABSOLUTE AUTO 1.62 10^3/uL (1.00-4.00); LYMPHOCYTES PERCENT AUTO 15.1 % (20.0-40.0); MEAN CORPUSCULAR HEMOGLOBIN 28.9 pg (27.0-31.0); MEAN CORPUSCULAR HGB CONC 33.2 g/dL (32.0-36.0); MEAN CORPUSCULAR VOLUME 87.2 fL (82.0-92.0); MEAN PLATELET VOLUME 9.2 fL (7.4-10.4); MONOCYTES ABSOLUTE AUTO 0.48 10^3/uL (0.10-0.80); MONOCYTES PERCENT AUTO 4.5 % (2.0-8.0); NEUTROPHILS ABSOLUTE AUTO 8.59 10^3/uL (2.50-7.00); NEUTROPHILS PERCENT AUTO 79.8 % (50.0-70.0); PLATELET COUNT,PLT 325 10^3/uL (150-400); RED BLOOD CELL COUNT 4.84 10^6/uL (3.80-5.50); WHITE BLOOD CELL COUNT,WBC 10.75 10^3/uL (5.00-10.00)
[2023-07-02] MEDS ORDERED: Sodium Chloride 0.9% 1,000 ML ONE (14:05)
[2023-07-02] MEDS ORDERED: Sodium Chloride 0.9% 1,000 ML IV ONE ×2 (14:07→15:24)
[2023-07-02 14:22] LABS: ALANINE AMINOTRANSFERASE,ALT 20 U/L (14-63); ALBUMIN 4.14 g/dL (3.40-5.00); ALKALINE PHOSPHATASE 107 U/L (46-116); AMYLASE 24 U/L (25-125); ANION GAP 13.2 mmol/L (5-15); ASPARTATE AMNIOTRANSFERASE,AST 22 U/L (15-37); BILIRUBIN TOTAL 0.5 mg/dL (0.2-1.0); BLOOD UREA NITROGEN,BUN 21 mg/dL (7-18); CALCIUM 10.5 mg/dL (8.7-10.3); CARBON DIOXIDE,CO2 27.7 mmol/L (21.0-32.0); CHLORIDE,CL 98 mmol/L (98-107); CREATININE 1.21 mg/dL (0.51-1.17); GLUCOSE RANDOM 213 mg/dL (70-140); LIPASE 71 U/L (73-393); POTASSIUM,K 3.9 mmol/L (3.5-5.1); PROTEIN TOTAL,TP 7.9 g/dL (6.4-8.2); SODIUM,NA 135 mmol/L (136-145)
[2023-07-02 14:23] LABS: ESTIMATED GFR 44 mL/min (>=60)
[2023-07-02] MEDS ORDERED: Iopamidol 755 Mg/ML 100 ML Bottle IV ONE (14:32)
[2023-07-02] MEDS ORDERED: Sodium Chloride 0.9% 50 ML IV SCH (14:45)
[2023-07-02 16:07] LABS: BILIRUBIN,URINE NEGATIVE (NEGATIVE); COLOR,URINE LIGHT YELLOW (YELLOW); GLUCOSE,URINE NEGATIVE (NEGATIVE); KETONES,URINE NEGATIVE (NEGATIVE); LEUKOCYTE ESTERASE,URINE TRACE (NEGATIVE); NITRITE,URINE POSITIVE (NEGATIVE); OCCULT BLOOD,URINE TRACE-INTACT (NEGATIVE); PH,URINE 7.5 (5.0-9.0); PROTEIN,URINE NEGATIVE (NEGATIVE); UROBILINOGEN,URINE 0.2 E.U./dL (0.2-1.0)
[2023-07-02 16:15] LABS: APPEARANCE,URINE SLIGHTLY CLOUDY (CLEAR)
[2023-07-02 16:16] LABS: BACTERIA,URINE MODERATE /HPF (NONE TO FEW); EPITHELIAL CELLS,URINE RARE /LPF; RBC,URINE 0-5 /HPF (0-5); WBC,URINE 0-5 /HPF (0-5)
[2023-07-02] MEDS ORDERED: Sodium Chloride 0.9% 1,000 ML IV SCH (16:30)
[2023-07-02] MEDS ORDERED: Ondansetron 4 MG/2 ML SDV ONE (18:43)
[2023-07-02] MEDS ORDERED: Ondansetron 4 MG/2 ML SDV IV PRN (20:15)
[2023-07-02] MEDS ORDERED: cefTRIAXone 1 GM Vial IVPUSH SCH (21:00)
[2023-07-02] MEDS: HYDROmorphone 1 MG/ML Syringe IVPUSH PRN (21:24)
[2023-07-02] MEDS: Sodium Chloride 0.9% 1,000 ML IV SCH (23:55)
[2023-07-03] MEDS: HYDROmorphone 1 MG/ML Syringe IVPUSH PRN (01:42)
[2023-07-03] MEDS ORDERED: Trolamine Salicylate/Aloe Vera 10% Crm 85 GM Tube TOP PRN (02:36)
[2023-07-03 07:15] LABS: BASOPHILS ABSOLUTE AUTO 0.03 10^3/uL (0.00-0.10); BASOPHILS PERCENT AUTO 0.3 % (0.0-1.0); EOSINOPHILS ABSOLUTE AUTO 0.05 10^3/uL (0.10-0.30); EOSINOPHILS PERCENT AUTO 0.5 % (1.0-3.0); HEMATOCRIT 36.7 % (37.0-47.0); HEMOGLOBIN 11.7 g/dL (12.0-16.0); IMMATURE GRAN ABSOLUTE AUTO 0.01 10^3/uL (0.00-0.50); IMMATURE GRAN PERCENT AUTO 0.1 % (0.0-5.0); LYMPHOCYTES ABSOLUTE AUTO 1.16 10^3/uL (1.00-4.00); LYMPHOCYTES PERCENT AUTO 10.6 % (20.0-40.0); MEAN CORPUSCULAR HGB CONC 31.9 g/dL (32.0-36.0); MEAN CORPUSCULAR VOLUME 90.8 fL (82.0-92.0); MEAN PLATELET VOLUME 9.1 fL (7.4-10.4); MONOCYTES ABSOLUTE AUTO 0.73 10^3/uL (0.10-0.80); MONOCYTES PERCENT AUTO 6.7 % (2.0-8.0); NEUTROPHILS ABSOLUTE AUTO 8.95 10^3/uL (2.50-7.00); NEUTROPHILS PERCENT AUTO 81.8 % (50.0-70.0); PLATELET COUNT,PLT 267 10^3/uL (150-400); RED BLOOD CELL COUNT 4.04 10^6/uL (3.80-5.50); RED CELL DISTRIBUTION WIDTH 12.5 % (11.5-14.5); WHITE BLOOD CELL COUNT,WBC 10.93 10^3/uL (5.00-10.00)
[2023-07-03 07:29] LABS: ANION GAP 12.2 mmol/L (5-15); CALCIUM 8.4 mg/dL (8.7-10.3); CARBON DIOXIDE,CO2 28.2 mmol/L (21.0-32.0); CREATININE 1.09 mg/dL (0.51-1.17); EST CRCL DRUG DOSING (CG) 26.61 mL/min; POTASSIUM,K 3.4 mmol/L (3.5-5.1)
[2023-07-03] MEDS: Sodium Chloride 0.9% 1,000 ML IV SCH (07:57)
[2023-07-03] MEDS ORDERED: Enoxaparin 40 MG/0.4 ML Syringe SUBCUT SCH (09:00)
[2023-07-03] MEDS ORDERED: Levothyroxine 112 MCG Tab PO SCH (16:30)
[2023-07-03] MEDS ORDERED: Diltiazem 180 MG Cap.CD PO SCH (16:30)
[2023-07-03 16:58] VITALS: BP 178/88
[2023-07-03 18:17] VITALS: PULSE 97
[2023-07-03] MEDS ORDERED: Gabapentin 300 MG Cap PO SCH (21:00)
[2023-07-03] MEDS ORDERED: Aspirin 325 MG Tab.EC PO SCH (21:00)
== END 2023-07-03 17:42 | disposition home or self-care (01) | DRG 683 ==
LOC: KA.ED 13:51 → KA.MS 17:58
PROVIDERS: ADMIT Family Medicine; ATTEND Family Medicine
PROC: 0D9670Z Drainage of Stomach with Drainage Device, Via Natural or Artificial Opening (ICD-10-PCS; principal; 2023-07-02)
DX: N17.9 Acute kidney failure, unspecified (principal); E87.1 Hypo-osmolality and hyponatremia; K56.50 Intestinal adhesions [bands], unspecified as to partial versus complete obstruction; N30.00 Acute cystitis without hematuria; N39.0 Urinary tract infection, site not specified; M19.90 Unspecified osteoarthritis, unspecified site; M81.0 Age-related osteoporosis without current pathological fracture; I48.91 Unspecified atrial fibrillation; E89.0 Postprocedural hypothyroidism; R79.89 Other specified abnormal findings of blood chemistry; M54.40 Lumbago with sciatica, unspecified side; G89.29 Other chronic pain; Z88.1 Allergy status to other antibiotic agents; Z88.8 Allergy status to other drugs, medicaments and biological substances; E11.9 Type 2 diabetes mellitus without complications; E03.9 Hypothyroidism, unspecified; Z79.84 Long term (current) use of oral hypoglycemic drugs; Z85.048 Personal history of other malignant neoplasm of rectum, rectosigmoid junction, and anus; Z98.49 Cataract extraction status, unspecified eye; Z90.89 Acquired absence of other organs; Z98.890 Other specified postprocedural states; Z90.49 Acquired absence of other specified parts of digestive tract; Z90.710 Acquired absence of both cervix and uterus; Z79.82 Long term (current) use of aspirin; Z79.899 Other long term (current) drug therapy
CPT/HCPCS: 36415; 71045; 71046; 74018; 74177; 80048; 80053; 81001; 82150; 82947; 83605; 83690; 84484; 85025; 87086; 87088; 87186; 93005; 93010; 96361; 96374; 96375; 99223-GT; 99239-GT; 99284; 99285-25; A9270-GY; J0696; J1170; J1650; J2405; J3490; J7030; Q3014; Q9967

== ENCOUNTER 2024-03-01 20:00 | Inpatient (IN) | payer MEDICARE, BC ==
[2024-03-01] MEDS: Sodium Chloride 0.9% 10 ML Syringe FLUSH PRN (20:18)
[2024-03-01 20:23] LABS: BASOPHILS ABSOLUTE AUTO 0.01 10^3/uL (0.00-0.10); BASOPHILS PERCENT AUTO 0.1 % (0.0-1.0); HEMOGLOBIN 14.1 g/dL (12.0-16.0); IMMATURE GRAN ABSOLUTE AUTO 0.03 10^3/uL (0.00-0.50); IMMATURE GRAN PERCENT AUTO 0.2 % (0.0-5.0); LYMPHOCYTES ABSOLUTE AUTO 0.85 10^3/uL (1.00-4.00); LYMPHOCYTES PERCENT AUTO 6.1 % (20.0-40.0); MEAN CORPUSCULAR HEMOGLOBIN 28.8 pg (27.0-31.0); MEAN CORPUSCULAR HGB CONC 33.6 g/dL (32.0-36.0); MEAN CORPUSCULAR VOLUME 85.7 fL (82.0-92.0); MEAN PLATELET VOLUME 9.5 fL (7.4-10.4); MONOCYTES ABSOLUTE AUTO 0.25 10^3/uL (0.10-0.80); MONOCYTES PERCENT AUTO 1.8 % (2.0-8.0); NEUTROPHILS PERCENT AUTO 91.8 % (50.0-70.0); PLATELET COUNT,PLT 274 10^3/uL (150-400); RED CELL DISTRIBUTION WIDTH 12.7 % (11.5-14.5); WHITE BLOOD CELL COUNT,WBC 13.94 10^3/uL (5.00-10.00)
[2024-03-01] MEDS: Sodium Chloride 0.9% 1,000 ML IV ONE (20:28)
[2024-03-01] MEDS: Ondansetron 4 MG/2 ML SDV IVPUSH ONE (20:29)
[2024-03-01] MEDS: HYDROmorphone 1 MG/ML Syringe IVPUSH ONE (20:32)
[2024-03-01 20:44] LABS: ALANINE AMINOTRANSFERASE,ALT 26 U/L (14-63); ALBUMIN 3.63 g/dL (3.40-5.00); ALKALINE PHOSPHATASE 94 U/L (46-116); ANION GAP 17.1 mmol/L (5-15); ASPARTATE AMNIOTRANSFERASE,AST 21 U/L (15-37); BILIRUBIN TOTAL 0.6 mg/dL (0.2-1.0); BLOOD UREA NITROGEN,BUN 27 mg/dL (7-18); CALCIUM 9.3 mg/dL (8.7-10.3); CHLORIDE,CL 99 mmol/L (98-107); CREATININE 1.01 mg/dL (0.51-1.17); GLUCOSE RANDOM 201 mg/dL (70-140); LIPASE 23 U/L (16-77); POTASSIUM,K 4.1 mmol/L (3.5-5.1); PROTEIN TOTAL,TP 7.2 g/dL (6.4-8.2); SODIUM,NA 137 mmol/L (136-145)
[2024-03-01 20:46] LABS: ESTIMATED GFR 54 mL/min (>=60)
[2024-03-01 21:01] LABS: INFLUENZA A NAA NEGATIVE (NEGATIVE); INFLUENZA B NAA NEGATIVE (NEGATIVE); RESPIRATORY SYNCYTIAL VIR NAA NEGATIVE (NEGATIVE)
[2024-03-01 21:03] LABS: CORONAVIRUS COVID-19 NAA NEGATIVE (NEGATIVE)
[2024-03-01 21:42] LABS: APPEARANCE,URINE CLEAR (CLEAR); BILIRUBIN,URINE NEGATIVE (NEGATIVE); COLOR,URINE YELLOW (YELLOW); GLUCOSE,URINE NEGATIVE (NEGATIVE); KETONES,URINE NEGATIVE (NEGATIVE); LEUKOCYTE ESTERASE,URINE NEGATIVE (NEGATIVE); NITRITE,URINE NEGATIVE (NEGATIVE); OCCULT BLOOD,URINE TRACE-LYSED (NEGATIVE); PROTEIN,URINE NEGATIVE (NEGATIVE); UROBILINOGEN,URINE 0.2 E.U./dL (0.2-1.0)
[2024-03-01 21:56] LABS: BACTERIA,URINE RARE /HPF (NONE TO FEW); EPITHELIAL CELLS,URINE RARE /LPF; RBC,URINE 0-5 /HPF (0-5); WBC,URINE 0-5 /HPF (0-5)
[2024-03-01] MEDS: LORazepam 0.5 MG Tab PO ONE (22:20)
[2024-03-01] MEDS ORDERED: Temazepam 15 MG Cap PO PRN (23:56)
[2024-03-01] MEDS ORDERED: Ondansetron 4 MG/2 ML SDV IV PRN (23:56)
[2024-03-02] MEDS ORDERED: Glucagon,Human Recombinant 1 MG Vial IM PRN ×2 (00:02)
[2024-03-02] MEDS ORDERED: 50% Dextrose in Water 50 ML Syringe IVPUSH PRN (00:02)
[2024-03-02] MEDS: Gabapentin 300 MG Cap PO SCH (00:09)
[2024-03-02] MEDS: Acetaminophen/oxyCODONE 325-5 MG Tab PO PRN (00:09)
[2024-03-02] MEDS: Sodium Chloride 0.9% 1,000 ML IV SCH (00:21)
[2024-03-02] MEDS: Levothyroxine 112 MCG Tab PO SCH (07:08)
[2024-03-02] MEDS: Insulin Lispro 100 Unit/ML 3 ML KwikPen SUBCUT SCH (07:47)
[2024-03-02 08:00] LABS: BASOPHILS ABSOLUTE AUTO 0.02 10^3/uL (0.00-0.10); BASOPHILS PERCENT AUTO 0.2 % (0.0-1.0); EOSINOPHILS ABSOLUTE AUTO 0.07 10^3/uL (0.10-0.30); EOSINOPHILS PERCENT AUTO 0.8 % (1.0-3.0); HEMATOCRIT 37.7 % (37.0-47.0); HEMOGLOBIN 12.5 g/dL (12.0-16.0); IMMATURE GRAN ABSOLUTE AUTO 0.01 10^3/uL (0.00-0.50); IMMATURE GRAN PERCENT AUTO 0.1 % (0.0-5.0); LYMPHOCYTES ABSOLUTE AUTO 0.93 10^3/uL (1.00-4.00); LYMPHOCYTES PERCENT AUTO 10.7 % (20.0-40.0); MEAN CORPUSCULAR HEMOGLOBIN 29.3 pg (27.0-31.0); MEAN CORPUSCULAR HGB CONC 33.2 g/dL (32.0-36.0); MEAN CORPUSCULAR VOLUME 88.5 fL (82.0-92.0); MEAN PLATELET VOLUME 9.3 fL (7.4-10.4); MONOCYTES ABSOLUTE AUTO 0.47 10^3/uL (0.10-0.80); MONOCYTES PERCENT AUTO 5.4 % (2.0-8.0); NEUTROPHILS ABSOLUTE AUTO 7.17 10^3/uL (2.50-7.00); NEUTROPHILS PERCENT AUTO 82.8 % (50.0-70.0); PLATELET COUNT,PLT 231 10^3/uL (150-400); RED BLOOD CELL COUNT 4.26 10^6/uL (3.80-5.50); RED CELL DISTRIBUTION WIDTH 12.9 % (11.5-14.5); WHITE BLOOD CELL COUNT,WBC 8.67 10^3/uL (5.00-10.00)
[2024-03-02] MEDS: Enoxaparin 40 MG/0.4 ML Syringe SUBCUT SCH (08:16)
[2024-03-02] MEDS: Cholecalciferol (Vitamin D3) 25 MCG Tab PO SCH (08:16)
[2024-03-02] MEDS: Diltiazem 180 MG Cap.CD PO SCH (08:16)
[2024-03-02 08:17] LABS: ANION GAP 11.1 mmol/L (5-15); CALCIUM 8.2 mg/dL (8.7-10.3); CARBON DIOXIDE,CO2 28.7 mmol/L (21.0-32.0); CREATININE 1.01 mg/dL (0.51-1.17); EST CRCL DRUG DOSING (CG) 28.72 mL/min; POTASSIUM,K 3.8 mmol/L (3.5-5.1)
[2024-03-02] MEDS: Magnesium Oxide 500 MG Tab PO SCH (10:42)
[2024-03-02] MEDS: Potassium Chloride 20 MEQ Tab.ER PO ONE (10:42)
[2024-03-02 12:26] VITALS: BP 155/71; PULSE 79
[2024-03-02] MEDS ORDERED: Aspirin 325 MG Tab.EC PO SCH (21:00)
== END 2024-03-02 12:05 | disposition home or self-care (01) | DRG 392 ==
LOC: KA.ED 20:00 → KA.MS 22:35
PROVIDERS: ADMIT Physician Assistant Surgical; ATTEND Family Medicine
DX: K52.9 Noninfective gastroenteritis and colitis, unspecified (principal); R11.2 Nausea with vomiting, unspecified; R79.82 Elevated C-reactive protein (CRP); E87.20 Acidosis, unspecified; I48.0 Paroxysmal atrial fibrillation; E11.42 Type 2 diabetes mellitus with diabetic polyneuropathy; M54.40 Lumbago with sciatica, unspecified side; H54.7 Unspecified visual loss; M19.90 Unspecified osteoarthritis, unspecified site; M81.0 Age-related osteoporosis without current pathological fracture; G89.29 Other chronic pain; F41.9 Anxiety disorder, unspecified; E86.0 Dehydration; D72.828 Other elevated white blood cell count; E11.9 Type 2 diabetes mellitus without complications; Z88.0 Allergy status to penicillin; E03.9 Hypothyroidism, unspecified; Z79.84 Long term (current) use of oral hypoglycemic drugs; Z79.82 Long term (current) use of aspirin; Z98.49 Cataract extraction status, unspecified eye; Z98.890 Other specified postprocedural states; Z90.89 Acquired absence of other organs; Z79.899 Other long term (current) drug therapy; Z88.1 Allergy status to other antibiotic agents; Z88.8 Allergy status to other drugs, medicaments and biological substances; Z90.49 Acquired absence of other specified parts of digestive tract; Z90.710 Acquired absence of both cervix and uterus
CPT/HCPCS: 0241U; 36415; 71045; 80048; 80053; 81001; 82947; 83605; 83690; 83735; 85025; 86140; 87040; 96361; 96374; 96375; 99223-GT; 99239-GT; 99284; 99285-25; A9270-GY; J1170; J1650; J2405; J3490; J7030; Q3014